=== PATIENT | male | born 1955 | race African-American/Black ===

== ENCOUNTER 2020-05-23 23:41 | Emergency (ER) | payer MEDICARE, OTHER ==
[~2020-05-23] VITALS: Ht 190.5 cm; Wt 93.0 kg
[~2020-05-23 23:41] MED LIST: ATENOLOL; LISINOPRIL; PROTONIX
[2020-05-24] MEDS ORDERED: METHYLPREDNISOLONE SOD SUCC 125 MG/2 ML VIAL IV STA (00:06)
[2020-05-24] MEDS ORDERED: IPRATROPIUM BROMIDE (0.02%) 0.5MG/2.5ML NEB HHN STA ×2 (00:06→07:03)
[2020-05-24] MEDS ORDERED: MAGNESIUM 2 G PREMIX 50 ML IV ONE (00:15)
[2020-05-24] MEDS ORDERED: ALBUTEROL (0.083%) 2.5MG/3ML NEB ONE (00:26)
[2020-05-24] MEDS: ALBUTEROL (0.083%) 2.5MG/3ML NEB HHN SCH ×3 (00:35→01:40)
[2020-05-24 00:36] LABS: CHLORIDE 90 mEq/L (98-107)
[2020-05-24] MEDS ORDERED: SODIUM CHLORIDE 0.9% 250 ML IV ONE (01:11)
[2020-05-24] MEDS ORDERED: POTASSIUM CHLORIDE 20MEQ TABLET SR PO ONE (01:15)
[2020-05-24 01:16] LABS: HEMATOCRIT. 27.1 % (42.0-52.0); HEMOGLOBIN. 8.6 g/dL (14.0-18.0); MEAN CORPUSCULAR HEMOGLOBIN 22.1 pg (28.0-32.0); MEAN PLATELET VOLUME 7.3 fl (7.4-10.4); PLATELET 382 x1000/uL (130-400); RED BLOOD CELL COUNT 3.87 mill/uL (4.7-6.1); RED CELL DISTRIBUTION WIDTH 21.1 % (11.6-14.6)
[2020-05-24] MEDS ORDERED: IOHEXOL-300 100 ML BOTTLE ONE (01:52)
[2020-05-24] MEDS ORDERED: POTASSIUM CHLORIDE 20MEQ TABLET SR PO SCH (05:30)
[2020-05-24 05:40] LABS: ATYPICAL LYMPHOCYTES 1; PLATELET ESTIMATE NORMAL
[2020-05-24] MEDS ORDERED: ALBUTEROL (0.083%) 2.5MG/3ML NEB HHN STA (07:03)
[2020-05-24] MEDS ORDERED: IPRATROPIUM/ALBUTEROL 0.5-3(2.5)MG/3ML NEB HHN ONE (10:30)
[2020-05-24 17:43] VITALS: BP 143/84
== END 2020-05-24 17:47 | disposition short-term general hospital (02) ==
LOC: ER 23:41 → EDBEDREQ 05-24 02:35 → EDBEDREQTM 05-24 02:35 → ER 05-24 17:47 → CANBEDREQ 05-24 18:22
DX: J44.1 Chronic obstructive pulmonary disease with (acute) exacerbation (principal); R22.1 Localized swelling, mass and lump, neck; D50.9 Iron deficiency anemia, unspecified; I10 Essential (primary) hypertension; F17.210 Nicotine dependence, cigarettes, uncomplicated; F12.10 Cannabis abuse, uncomplicated; Z03.818 Encounter for observation for suspected exposure to other biological agents ruled out; Z87.19 Personal history of other diseases of the digestive system; Z87.828 Personal history of other (healed) physical injury and trauma; Z98.890 Other specified postprocedural states
CPT/HCPCS: 36415; 70491; 71045; 80053; 83880; 84484; 85025; 93005; 94640; 99285; C9803; J2930; J3475; J7050; Q9967; U0003; 99291

== ENCOUNTER 2021-10-11 06:06 | Emergency (ER) | payer MEDICARE, OTHER ==
[~2021-10-11] VITALS: Ht 190.5 cm; Wt 87.0 kg
[~2021-10-11 06:06] MED LIST changes: +ALBU90AE INH; +AMLO10TA80 MT; -LISINOPRIL; +P20 PO; +TAMS-11 MT
[2021-10-11 06:48] LABS: HEMATOCRIT. 29.9 % (42.0-52.0); HEMOGLOBIN. 9.4 g/dL (14.0-18.0); MEAN CORPUSCULAR HEMOGLOBIN 26.5 pg (28.0-32.0); MEAN CORPUSCULAR VOLUME 84.7 fL (80.0-94.0); MEAN PLATELET VOLUME 6.9 fl (7.4-10.4); PLATELET 428 x1000/uL (130-400); RED BLOOD CELL COUNT 3.53 mill/uL (4.7-6.1); RED CELL DISTRIBUTION WIDTH 19.9 % (11.6-14.6)
[2021-10-11 06:53] LABS: CHLORIDE 107 mEq/L (98-107)
[2021-10-11] MEDS ORDERED: SODIUM CHLORIDE 0.9% 500 ML IV ONE (07:00)
[2021-10-11] MEDS ORDERED: DEXAMETHASONE 4MG TABLET PO ONE (10:00)
[2021-10-11] MEDS ORDERED: IOHEXOL-300 100 ML BOTTLE ONE (10:21)
[2021-10-11 11:08] LABS: PLATELET ESTIMATE SLIGHTLY INCREASED
[2021-10-11 18:22] VITALS: BP 144/84
== END 2021-10-11 18:22 | disposition left against medical advice (07) ==
LOC: ER 06:06
DX: C14.0 Malignant neoplasm of pharynx, unspecified (principal); R06.02 Shortness of breath; J44.9 Chronic obstructive pulmonary disease, unspecified; Z98.890 Other specified postprocedural states; Z79.899 Other long term (current) drug therapy; Z20.822 Contact with and (suspected) exposure to COVID-19
CPT/HCPCS: 36415; 70491; 71045; 80053; 83880; 85025; 87426; 93005; 96360; 99285; J7040; Q9967; J8540